=== PATIENT | female | born 1955 | race Caucasian/White ===

== ENCOUNTER 2017-10-20 09:44 | Emergency (ER) | payer OTHER ==
[~2017-10-20] VITALS: Ht 170.2 cm; Wt 82.4 kg
[~2017-10-20 09:44] MED LIST: CALC-71 PO; CHOL100013 PO; ESTR0.45 PO; MULT1TAB97 PO; TAFL1DRO OP; TELM1TAB2 PO
[2017-10-20] MEDS ORDERED: ASPIRIN 81 MG TAB.CHEW ONE (10:07)
--- NOTE | 2017-10-20 10:12 | PHYS DOC ---
Past History Past Medical History: Hypertension Smoking: Non-smoker Adult General Chief Complaint Chief Complaint: CHEST PAIN HPI HPI 62-year-old female patient with history of hypertension states she felt pressure feeling in upper chest with radiation to her neck while she was driving as a moderate pain and rated her pain 5/10 associated with nausea without shortness of breath, dizziness, palpitation, focal neuro deficit. Patient stated the pain later on moved to bilateral lower chest and last about 10 minutes and resolved spontaneously. Patient states she had one episode of the same pain one month ago. She denies history of coronary artery disease, dyslipidemia, smoking cigarettes, diabetes. Patient had family history of coronary artery disease. Review of Systems Review of Systems Constitutional: Denies fever or chills [] Eyes: Denies change in visual acuity, redness, or eye pain [] HENT: Denies nasal congestion or sore throat [] Respiratory: Denies cough or shortness of breath [] Cardiovascular: No additional information not addressed in HPI [] GI: Denies abdominal pain, vomiting, bloody stools or diarrhea, reports nausea [ ] : Denies dysuria or hematuria [] Musculoskeletal: Denies back pain or joint pain [] Integument: Denies rash or skin lesions [] Neurologic: Denies headache, focal weakness or sensory changes [] Endocrine: Denies polyuria or polydipsia [] All other systems were reviewed and found to be within normal limits, except as documented in this note. Allergies Allergies Allergies Coded Allergies Type Severity Reaction Last Updated Verified No Known Drug Allergies 01/17/14 No Physical Exam Physical Exam Constitutional: Well developed, well nourished, no acute distress, non-toxic appearance. [] HENT: Normocephalic, atraumatic, oropharynx moist, no oral exudates] Eyes: PERRLA, EOMI, conjunctiva normal, no discharge. [] Neck: Normal range of motion, no tenderness, supple, no stridor. [] Cardiovascular:Heart rate regular rhythm, no murmur [] Lungs & Thorax: Bilateral breath sounds clear to auscultation [] Abdomen: Bowel sounds normal, soft, no tenderness, no masses, no pulsatile masses. [] Skin: Warm, dry, no erythema, no rash. [] Back: No tenderness, no CVA tenderness. [] Extremities: No tenderness, no cyanosis, no clubbing, ROM intact, no edema. [] Neurologic: Alert and oriented X 3, normal motor function, normal sensory function, no focal deficits noted. [] Psychologic: Affect normal, judgement normal, mood normal. [] EKG EKG EKG interpreted by me. EKG at 0 954 showed normal sinus rhythm at rate of 72, no acute ST and T wave abnormality Radiology/Procedures Radiology/Procedures [] [address] [address] IMAGING REPORT Signed PATIENT: CINDY DIAL ACCOUNT: [id number] : 1955 LOCATION: ER AGE: 62 SEX: F EXAM STATUS: REG ER ORD. PHYSICIAN: HUMERA FULLER MD REASON: upper abdominal pain PROCEDURE: ABDOMEN LTD Limited abdominal ultrasound History:Upper abdomen pain. Findings: Inferior vena cava: Patent. Pancreas: Unremarkable Liver: Unremarkable and not enlarged Gallbladder: No evidence of gallstone or gallbladder wall thickening. Bile ducts: No evidence of dilatation Right kidney: 10.6 in longitudinal without evidence of hydronephrosis. Impression: No significant sonographic abnormality. Electronically signed by: Donald Whitney MD (10/20/2017 11:19 AM) [facility] DICTATED AND SIGNED BY: DONALD WHITNEY MD DATE: 10/20/17 1116 CC: HUMERA FULLER MD; LUIS CARR MD ~ [address] [address] IMAGING REPORT Signed PATIENT: CINDY DIAL ACCOUNT: [id number] : 1955 LOCATION: ER AGE: 62 SEX: F EXAM STATUS: REG ER ORD. PHYSICIAN: HUMERA FULLER MD REASON: chest pain PROCEDURE: CHEST PA & LATERAL CHEST PA LATERAL History: CHEST PAIN. Comparison: None are available Cardiomediastinal silhouette is within normal limits. No focal airspace consolidation. No pneumothorax identified. No evidence of effusion There is mild air trapping suggesting emphysema. There is a mild right convexity thoracic scoliosis. Impression: No radiographic evidence of active airspace consolidation. Electronically signed by: Donald Whitney MD (10/20/2017 12:09 PM) [facility] DICTATED AND SIGNED BY: DONALD WHITNEY MD DATE: 10/20/17 1205 CC: HUMERA FULLER MD; LUIS CARR MD ~ Course & Med Decision Making Course & Med Decision Making Pertinent Labs and Imaging studies reviewed. (See chart for details) [Volitional patient in ER showed 62-year-old female patient with complaining of discomfort feeling in chest and neck and upper abdomen. Patient had unremarkable physical exam and EKG and labs and 2 sets of cardiac enzymes and gallbladder ultrasound. Plan discharge patient home to diagnose of noncardiac chest pain.] Dragon Disclaimer Dragon Disclaimer This electronic medical record was generated, in whole or in part, using a voice recognition dictation system. Departure Departure: Impression: Primary Impression: Non-cardiac chest pain Additional Impression: Dehydration Disposition: 01 HOME, SELF-CARE (at 1331) Condition: STABLE Referrals: LUIS CARR MD (PCP) Patient Instructions: Musculoskeletal Pain Additional Instructions: Drink plenty of liquids Follow-up with your primary care physician in 3-5 days Return to ER if not getting better Problem Qualifiers HUMERA FULLER MD October 20, 2017 10:12
[2017-10-20] MEDS ORDERED: ASPIRIN 81 MG TAB.CHEW PO ONE (10:15)
[2017-10-20 10:18] LABS: BASO % 0 % (0-3); EOS # 0.1 x10^3/uL (0.0-0.7); EOS % 2 % (0-3); HEMATOCRIT 40.9 % (36.0-47.0); HEMOGLOBIN 14.1 g/dL (12.0-15.5); LYMPH # 1.9 x10^3/uL (1.0-4.8); LYMPH % 35 % (24-48); MEAN CORPUSCULAR HEMOGLOBIN 32 pg (25-35); MEAN CORPUSCULAR HGB CONC 35 g/dL (31-37); MEAN CORPUSCULAR VOLUME 93 fL (79-100); MONO # 0.5 x10^3/uL (0.0-1.1); MONO % 9 % (0-9); NEUT # 2.9 x10^3uL (1.8-7.7); NEUT % 53 % (31-73); PLATELET COUNT 274 x10^3/uL (140-400); WHITE BLOOD COUNT 5.6 x10^3/uL (4.0-11.0)
[2017-10-20 10:54] LABS: ALBUMIN 3.8 g/dL (3.4-5.0); ALBUMIN/GLOBULIN RATIO 1.1 (1.0-1.7); CALCIUM 8.9 mg/dL (8.5-10.1); CREATININE 0.8 mg/dL (0.6-1.0); GFR 72.2; MAGNESIUM 2.1 mg/dL (1.8-2.4); TOTAL BILIRUBIN 0.6 mg/dL (0.2-1.0); TOTAL PROTEIN 7.4 g/dL (6.4-8.2)
[2017-10-20] MEDS ORDERED: IV NORMAL SALINE 1,000ML 1,000 ML IV ONE (11:15)
--- NOTE | 2017-10-20 11:22 | RAD ---
Limited abdominal ultrasound History:Upper abdomen pain. Findings: Inferior vena cava: Patent. Pancreas: Unremarkable Liver: Unremarkable and not enlarged Gallbladder: No evidence of gallstone or gallbladder wall thickening. Bile ducts: No evidence of dilatation Right kidney: 10.6 in longitudinal without evidence of hydronephrosis. Impression: No significant sonographic abnormality. Electronically signed by: Donald Whitney MD (10/20/2017 11:19 AM) [facility]
--- NOTE | 2017-10-20 11:36 | EKG ---
[address] [address] Test Date: 2017-10-20 Test Time: 09:54:38 Pat Name: CINDY DIAL Department: Room: Gender: F Customer Project Manager: HADLEY : 1955 Requested By: HUMERA FULLER Order Number: [id number] Reading MD: Louis Chavez MD Measurements Intervals [place] Rate: 72 P: 51 ID: [id number] QRS: 36 QRSD: 82 T: 25 QT: 382 QTc: 420 Interpretive Statements SINUS RHYTHM Electronically Signed On 10-27-2017 12:08:23 CDT by Louis Chavez MD
--- NOTE | 2017-10-20 12:12 | RAD ---
CHEST PA LATERAL History: CHEST PAIN. Comparison: None are available Cardiomediastinal silhouette is within normal limits. No focal airspace consolidation. No pneumothorax identified. No evidence of effusion There is mild air trapping suggesting emphysema. There is a mild right convexity thoracic scoliosis. Impression: No radiographic evidence of active airspace consolidation. Electronically signed by: Donald Whitney MD (10/20/2017 12:09 PM) [facility]
[2017-10-20 14:04] VITALS: BP 155/81
== END 2017-10-20 14:10 | disposition home or self-care (01) ==
LOC: ER 09:44
DX: R07.89 Other chest pain (principal); E86.0 Dehydration; I10 Essential (primary) hypertension
CPT/HCPCS: 36415; 71046; 76705; 80053; 82553; 83690; 83735; 83880; 84484; 85025; 93005; 96360; 99285-25; J7030